=== PATIENT | male | born 1995 | race Caucasian/White ===

== ENCOUNTER 2017-02-19 21:42 | Emergency (ER) | payer OTHER ==
--- NOTE | 2017-02-19 21:53 | ER Document Report ---
ED General - General Stated Complaint: POSSIBLE OVERDOSE Time Seen by Provider: 02/19/17 21:51 Cannot obtain history due to: Altered mental status Notes: Patient is a 21-year-old male who presents by EMS after ingesting an unknown quantity of diazepam and one other additional medication. Patient does not know the name of the other medication that he took but he believes it may be his valproic acid. Patient is somewhat somnolent at time of arrival and minimally cooperative with history taking. States that he took these because his fiance left him and he did not want to "feel anything anymore". Denies any explicit suicidal ideation or intent but does note that he was okay if medications were to kill him. Notes a prior history of hospitalizations and suicide attempts. He has been diagnosed with depression, anxiety and posttraumatic stress disorder. History is otherwise limited secondary to patient's clinical status and willingness to Cooperate with history taking TRAVEL OUTSIDE OF THE [place] IN LAST 30 DAYS: No Past Medical History - General Information source: Patient, Emergency Med Personnel Cannot obtain history due to: Uncooperative, Altered mental status - Social History Smoking Status: Never Smoker Frequency of alcohol use: Occasional Drug Abuse: None Family History: Reviewed & Not Pertinent Neurological Medical History: Reports: Hx Seizures Musculoskeltal Medical History: Reports Hx Musculoskeletal Trauma Psychiatric Medical History: Reports: Hx Bipolar Disorder, Hx Post Traumatic Stress Disorder - Immunizations Hx Diphtheria, Pertussis, Tetanus Vaccination: Yes Review of Systems - Review of Systems Notes: Constitutional: Negative for fever. HENT: Negative for sore throat. Eyes: Negative for visual changes. Cardiovascular: Negative for chest pain. Respiratory: Negative for shortness of breath. Gastrointestinal: Negative for abdominal pain, vomiting or diarrhea. Genitourinary: Negative for dysuria. Musculoskeletal: Negative for back pain. Skin: Negative for rash. Neurological: Negative for headaches, weakness or numbness. 10 point ROS negative except as marked above and in HPI. Physical Exam - Vital signs Vitals: Resp BP Pulse Ox 16 118/84 100 02/19/17 21:55 02/19/17 21:55 02/19/17 21:55 Interpretation: Normal Notes: PHYSICAL EXAMINATION: GENERAL: Somewhat somnolent but does respond all questions. GCS 15. HEAD: Atraumatic, normocephalic. EYES: Pupils equal round and reactive to light, extraocular movements intact, sclera anicteric, conjunctiva are normal. ENT: nares patent, oropharynx clear without exudates. Moist mucous membranes. NECK: Normal range of motion, supple without lymphadenopathy LUNGS: Breath sounds clear to auscultation bilaterally and equal. No wheezes rales or rhonchi. HEART: Regular rate and rhythm without murmurs ABDOMEN: Soft, nontender, normoactive bowel sounds. No guarding, no rebound. No masses appreciated. EXTREMITIES: Normal range of motion, no pitting or edema. No cyanosis. NEUROLOGICAL: No focal neurological deficits. Moves all extremities spontaneously and on command. PSYCH: Somnolent, depressed mood and affect. Poor eye contact. SKIN: Warm, Dry, normal turgor, no rashes or lesions noted. Course - Re-evaluation Re-evalutation: 02/19/17 21:52 Patient presents after overdosing on unknown quantity of diazepam as well as possibly valproic acid. Patient states he did not want other additional medication but he is uncertain of which medicine this was. He is prescribed valproic acid, Klonopin, and Prozac. Patient states that he took these medicines "because it did not want to feel anything anymore". He does have a history of depression anxiety and admits to remote history of suicide attempt. At time of initial assessment patient is somewhat somnolent but awake, talking and coherent fashion. No acute medical concerns. Vitals are normal at the time of initial assessment. Will send a full panel of labs including a valproic acid level, placed on retail management keyholder, and I have filled out IVC paperwork. 02/20/17 03:14 Patient has remained hemodynamically stable. Labs are all unremarkable including a valproic acid level which is undetectable. EKG unremarkable. He has not had any airway compromise or deterioration of his mental status. He is clinically cleared for psychiatric evaluation at this time - Vital Signs Vital signs: Temp Pulse Resp BP Pulse Ox 19 101/56 L 98 02/20/17 01:31 02/20/17 01:30 02/20/17 01:31 - Laboratory Result Diagrams: 02/19/17 22:04 02/19/17 22:04 Laboratory results interpreted by me: 02/19/17 02/19/17 22:04 23:36 Potassium 3.4 L Ur Leukocyte Esterase TRACE H Salicylates < 1.0 L Acetaminophen < 10 L Valproic Acid < 10.0 L - EKG Interpretation by Me Additional EKG results interpreted by me: 02/20/17 03:13 Sinus bradycardia. Rate 48. No ST elevations or depressions. QTC is 404. Discharge - Discharge Clinical Impression: Polysubstance overdose Qualifiers: Encounter type: initial encounter Injury intent: intentional self-harm Qualified Code(s): T50.902A - Poisoning by unspecified drugs, medicaments and biological substances, intentional self-harm, initial encounter Condition: Fair Disposition: PSYCH HOSP/UNIT
[2017-02-19 22:33] LABS: ABSOLUTE EOSINOPHILS # (AUTO) 0.2 10^3/uL (0.0-0.6); ABSOLUTE LYMPHOCYTES (AUTO) 2.9 10^3/uL (0.5-4.7); ABSOLUTE MONOCYTES (AUTO) 0.6 10^3/uL (0.1-1.4); ABSOLUTE NEUT (AUTO) 4.8 10^3/uL (1.7-8.2); BASOPHILS % (AUTO) 0.4 % (0-2); EOSINOPHILS % (AUTO) 2.6 % (0-6); HEMATOCRIT 41.8 % (37.9-51.0); HEMOGLOBIN 13.6 g/dL (13.5-17.0); LYMPHOCYTES % (AUTO) 34.1 % (13-45); MEAN CORPUSCULAR HEMOGLOBIN 27.3 pg (27.0-33.4); MEAN CORPUSCULAR HGB CONC 32.7 g/dL (32.0-36.0); MEAN CORPUSCULAR VOLUME 83 fl (80-97); MONOCYTES % (AUTO) 7.4 % (3-13); RED CELL DISTRIBUTION WIDTH 13.8 % (11.5-14.0); SEGMENTED NEUTROPHILS % (AUTO) 55.5 % (42-78); WHITE BLOOD COUNT 8.6 10^3/uL (4.0-10.5)
[2017-02-19 22:56] LABS: ALANINE AMINOTRANSFERASE 26 U/L (21-72); ALBUMIN 3.7 g/dL (3.5-5.0); ALKALINE PHOSPHATASE 75 U/L (38-126); ANION GAP 12 (5-19); ASPARTATE AMINO TRANSFERASE 21 U/L (17-59); BILIRUBIN,DIRECT 0.2 mg/dL (0.0-0.4); BILIRUBIN,TOTAL 0.6 mg/dL (0.2-1.3); BLOOD UREA NITROGEN 9 mg/dL (7-20); CALCIUM 8.6 mg/dL (8.4-10.2); CARBON DIOXIDE 24 mmol/L (22-30); CHLORIDE 106 mmol/L (98-107); CREATININE RESULT 1.09 mg/dL (0.52-1.25); GLUCOSE 97 mg/dL (75-110); POTASSIUM 3.4 mmol/L (3.6-5.0); SODIUM 141.7 mmol/L (137-145); TOTAL PROTEIN 6.9 g/dL (6.3-8.2)
[2017-02-19 23:02] LABS: ALCOHOL < 10 mg/dL (NONE DETECTED); VALPROIC ACID < 10.0 ug/mL (50.0-120.0)
[2017-02-20 01:24] LABS: APPEARANCE,URINE CLEAR; BILIRUBIN,URINE NEGATIVE (NEGATIVE); GLUCOSE, URINE NEGATIVE (NEGATIVE); KETONES,URINE NEGATIVE (NEGATIVE); LEUKOCYTE ESTERASE,URINE TRACE (NEGATIVE); NITRITE,URINE NEGATIVE (NEGATIVE); PROTEIN,URINE NEGATIVE (NEGATIVE); URINE SPECIFIC GRAVITY 1.018; UROBILINOGEN,URINE NEGATIVE mg/dL (<2.0)
[2017-02-20 01:47] LABS: URINE BARBITURATES SCREEN NEGATIVE; URINE METHADONE SCREEN NEGATIVE; URINE OPIATES LOW NEGATIVE; URINE PHENCYCLIDINE SCREEN NEGATIVE
[2017-02-20] MEDS: BENZTROPINE MESYLATE 1 MG TABLET PO SCH (12:06)
[2017-02-20] MEDS: OLANZAPINE 5 MG TABLET PO SCH (17:54)
--- NOTE | 2017-02-20 17:55 | EKG REPORT ---
SEVERITY:- OTHERWISE NORMAL ECG - SINUS BRADYCARDIA BORDERLINE RIGHT AXIS DEVIATION : Confirmed by: Clinton Thakur 20-Feb-2017 17:54:37
--- NOTE | 2017-02-20 18:58 | ER Document Report ---
Doctor's Note Notes: 02/20/17 18:58 Pain and evaluated at bedside, chart was reviewed, including labs, vital signs, previous physician documentation, mental health team has evaluated patient and feel as though he should continue to remain under IVC as it is unsafe for him to go home and their weapons at home that he could use to harm himself, this plan was discussed with patient at bedside and he is in agreement, no complaints at present time
[2017-02-21] MEDS: BENZTROPINE MESYLATE 1 MG TABLET PO SCH (10:31)
[2017-02-21] MEDS: OLANZAPINE 5 MG TABLET PO SCH (10:31)
--- NOTE | 2017-02-21 10:50 | ER Document Report ---
Doctor's Note Notes: 02/21/17 10:49 Patient resting comfortably on stretcher, no complaints at present time, no events overnight, chart was reviewed including labs and vital signs, he has had periods of borderline hypotension, but he is responsive at time of my evaluation , so likely his blood pressure was low only when he was sleeping or resting, patient will remain in the emergency room until appropriate disposition can be made that ensures his safety as he has access to weapons at home at the current time
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
[2017-02-21 16:24] VITALS: BP 116/69
== END 2017-02-21 16:24 | disposition home or self-care (01) ==
LOC: ER 21:42
DX: T42.4X2A Poisoning by benzodiazepines, intentional self-harm, initial encounter (principal); T50.902A Poisoning by unspecified drugs, medicaments and biological substances, intentional self-harm, initial encounter; R40.0 Somnolence; R00.1 Bradycardia, unspecified; F31.4 Bipolar disorder, current episode depressed, severe, without psychotic features; F41.9 Anxiety disorder, unspecified; F43.10 Post-traumatic stress disorder, unspecified; Z79.899 Other long term (current) drug therapy; Z63.0 Problems in relationship with spouse or partner
CPT/HCPCS: 36415; 80053; 80164; 80307; 81001; 85025; 93005; 93010; 99285

== ENCOUNTER 2020-04-27 00:03 | Emergency (ER) | payer OTHER ==
[2020-04-27] MEDS ORDERED: NORMAL SALINE 1000 ML 1,000 ML IV ONE (00:37)
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
[2020-04-27 00:52] LABS: ABSOLUTE BASOPHILS # (AUTO) 0.1 10^3/uL (0.0-0.2); ABSOLUTE EOSINOPHILS # (AUTO) 0.2 10^3/uL (0.0-0.6); ABSOLUTE LYMPHOCYTES (AUTO) 2.1 10^3/uL (0.5-4.7); ABSOLUTE MONOCYTES (AUTO) 0.8 10^3/uL (0.1-1.4); ABSOLUTE NEUT (AUTO) 6.9 10^3/uL (1.7-8.2); BASOPHILS % (AUTO) 0.6 % (0-2); EOSINOPHILS % (AUTO) 2.3 % (0-6); HEMATOCRIT 43.2 % (37.9-51.0); HEMOGLOBIN 14.6 g/dL (13.5-17.0); LYMPHOCYTES % (AUTO) 20.9 % (13-45); MEAN CORPUSCULAR HGB CONC 33.9 g/dL (32.0-36.0); MEAN CORPUSCULAR VOLUME 83 fl (80-97); PLATELET COUNT 207 10^3/uL (150-450); RED BLOOD COUNT 5.23 10^6/uL (4.35-5.55); RED CELL DISTRIBUTION WIDTH 14.2 % (11.5-14.0); SEGMENTED NEUTROPHILS % (AUTO) 68.2 % (42-78); TOTAL CELLS COUNTED % (AUTO) 100 %; WHITE BLOOD COUNT 10.1 10^3/uL (4.0-10.5)
[2020-04-27 01:08] LABS: ACETAMINOPHEN < 10 ug/mL (10-30); ALBUMIN 4.5 g/dL (3.5-5.0); ALCOHOL 25 mg/dL (NONE DETECTED); ALKALINE PHOSPHATASE 94 U/L (38-126); ANION GAP 11 (5-19); ASPARTATE AMINO TRANSFERASE 28 U/L (17-59); BILIRUBIN,TOTAL 0.4 mg/dL (0.2-1.3); BLOOD UREA NITROGEN 12 mg/dL (7-20); CALCIUM 9.4 mg/dL (8.4-10.2); CARBON DIOXIDE 22 mmol/L (22-30); CHLORIDE 106 mmol/L (98-107); GLUCOSE 99 mg/dL (75-110); POTASSIUM 3.5 mmol/L (3.6-5.0); SALICYLATE < 1.0 mg/dL (2.0-20.0); TOTAL PROTEIN 7.6 g/dL (6.3-8.2)
[2020-04-27 01:46] LABS: AMORPHOUS SEDIMENT,URINE TRACE /HPF; APPEARANCE,URINE SLIGHTLY-CLOUDY; BILIRUBIN,URINE NEGATIVE (NEGATIVE); COLOR,URINE YELLOW; GLUCOSE, URINE NEGATIVE (NEGATIVE); KETONES,URINE NEGATIVE (NEGATIVE); LEUKOCYTE ESTERASE,URINE NEGATIVE (NEGATIVE); NITRITE,URINE NEGATIVE (NEGATIVE); PROTEIN,URINE 30 mg/dL (NEGATIVE); URINE SPECIFIC GRAVITY 1.028
[2020-04-27 02:08] LABS: URINE AMPHETAMINES SCREEN NEGATIVE; URINE BARBITURATES SCREEN NEGATIVE; URINE BENZODIAZEPINES SCREEN NEGATIVE; URINE COCAINE SCREEN NEGATIVE; URINE MARIJUANA (THC) SCREEN NEGATIVE; URINE METHADONE SCREEN NEGATIVE; URINE PHENCYCLIDINE SCREEN NEGATIVE
--- NOTE | 2020-04-27 02:19 | RADIOLOGY REPORT (SQ) ---
EXAM DESCRIPTION: CT HEAD WITHOUT IV CONTRAST COMPLETED DATE/TME: 04/27/2020 00:36 CLINICAL HISTORY: ETOH, head injury COMPARISON: 07/20/2016 TECHNIQUE: Axial CT of the head obtained from the skull apex to the skull base without contrast. FINDINGS: No acute intracranial hemorrhage identified. No mass, mass effect, shift of the midline, abnormal extra-axial fluid collection or CT evidence of acute ischemic change identified. The ventricular system is unremarkable. No acute abnormalities of the supratentorial white matter, basal ganglia, cerebellum, or brainstem. Contusion in the right facial subcutaneous soft tissues. The visualized paranasal sinuses and the mastoids are relatively well aerated. No skull fracture identified. Visualized orbits and globes are unremarkable. IMPRESSION: 1. No acute intracranial abnormality identified. This exam was performed according to our departmental dose-optimization program, which includes automated exposure control, adjustment of the mA and/or kV according to patient size and/or use of iterative reconstruction technique.
--- NOTE | 2020-04-27 02:29 | RADIOLOGY REPORT (SQ) ---
EXAM DESCRIPTION: CT CERVICAL SPINE WITHOUT IV CONTRAST COMPLETED DATE/TME: 04/27/2020 00:36 CLINICAL HISTORY: ETOH, head injury COMPARISON: None available TECHNIQUE: Axial CT of the cervical spine obtained without contrast. FINDINGS: Straightening of the cervical lordosis may be secondary to patient positioning. The atlantoaxial, atlantodental, and occipitoatlantal intervals are preserved. No fracture identified. Vertebral body height preserved. Prevertebral soft tissues are unremarkable. Intervertebral disc height preserved. Visualized skull base is intact. No fracture of the visualized facial bones. Visualized mastoid air cells and paranasal sinuses are well aerated. Visualized thyroid is unremarkable. No cervical lymphadenopathy. No pneumothorax in the visualized lung apices. IMPRESSION: 1. No acute fracture or subluxation of the cervical spine. This exam was performed according to our departmental dose-optimization program, which includes automated exposure control, adjustment of the mA and/or kV according to patient size and/or use of iterative reconstruction technique.
[2020-04-27] MEDS ORDERED: KETOROLAC TROMETHAMINE INJ/PF 30 MG/1 ML SDV IV ONE (06:03)
--- NOTE | 2020-04-27 10:11 | EKG REPORT ---
SEVERITY:- BORDERLINE ECG - SINUS RHYTHM BORDERLINE RIGHT AXIS DEVIATION INFERIOR Q WAVES, PROBABLY NORMAL VARIATION : Confirmed by: Clinton Thakur 27-Apr-2020 10:09:59
--- NOTE | 2020-04-27 12:05 | ER Document Report ---
Doctor's Note Notes: 04/27/20 11:04 PHYSICAL EXAMINATION: GENERAL: Well-appearing and in no acute distress. HEAD: Atraumatic, normocephalic. EYES: sclera anicteric, conjunctiva are normal. ENT: nares patent. Moist mucous membranes. NECK: Normal range of motion, supple without lymphadenopathy LUNGS: CTAB and equal. No wheezes rales or rhonchi. HEART: Regular rate and rhythm without murmurs ABDOMEN: Soft, nontender, normal bowel sounds, no guarding. EXTREMITIES: Normal range of motion, no pitting edema. BACK: No CVA tenderness NEUROLOGICAL: Cranial nerves grossly intact. Normal speech. PSYCH: Normal mood, normal affect. SKIN: Warm, Dry, normal turgor, no rashes or lesions noted Patient resting without complaint at this time. Behavioral health team is [facility] to [facility] at this time. Patient otherwise medically clear at this time. 04/27/20 19:45 Patient complains of right ear discomfort, patient with a bulging purulent effusion to the right ear.
[2020-04-27] MEDS: DIVALPROEX SODIUM 250 MG TAB.SR.24H PO SCH (16:56)
[2020-04-27] MEDS: BENZTROPINE MESYLATE 1 MG TABLET PO SCH (16:56)
[2020-04-27] MEDS: LURASIDONE HCL 40 MG TABLET PO SCH (16:56)
[2020-04-27] MEDS: OLANZAPINE 5 MG TABLET PO SCH (18:59)
[2020-04-27] MEDS ORDERED: IBUPROFEN 600 MG TABLET PO PRN (19:44)
[2020-04-27] MEDS: AMOXICILLIN TRIHYDRATE 500 MG CAPSULE PO SCH (22:04)
[2020-04-28] MEDS: DIVALPROEX SODIUM 250 MG TAB.SR.24H PO SCH (10:10)
[2020-04-28] MEDS: LURASIDONE HCL 40 MG TABLET PO SCH (10:10)
[2020-04-28] MEDS: OLANZAPINE 5 MG TABLET PO SCH (10:10)
[2020-04-28] MEDS: AMOXICILLIN TRIHYDRATE 500 MG CAPSULE PO SCH (10:10)
[2020-04-28] MEDS: BENZTROPINE MESYLATE 1 MG TABLET PO SCH (10:11)
--- NOTE | 2020-04-28 11:04 | ER Document Report ---
Doctor's Note Notes: 04/28/20 10:45 PHYSICAL EXAMINATION: GENERAL: Well-appearing and in no acute distress. HEAD: Atraumatic, normocephalic. EYES: sclera anicteric, conjunctiva are normal. ENT: Right purulent effusion, scar tissue to bilateral TMs nares patent. Moist mucous membranes. NECK: Normal range of motion, supple without lymphadenopathy LUNGS: CTAB and equal. No wheezes rales or rhonchi. HEART: Regular rate and rhythm without murmurs EXTREMITIES: Normal range of motion, no pitting edema. No cyanosis. BACK: No CVA tenderness NEUROLOGICAL: Cranial nerves grossly intact. Normal speech. PSYCH: Normal mood, normal affect. SKIN: Warm, Dry, normal turgor, no rashes or lesions noted Patient resting quietly on stretcher with visitor at bedside. Patient medically clear for transfer discharge pending behavioral health team disposition. 04/28/20 14:08 Patient has been cleared for discharge at this time, behavioral health team advises giving patient prescription of his medications for the next 2 weeks as he is attempting to get back home to [place].
--- NOTE | 2020-04-28 12:42 | PSYCHOLOGICAL NOTE ---
Psych Note - Psych Note Date seen by psych provider: 04/27/20 Time seen by psych provider: 11:35 Psych Note: Reason for Consult: Suicidal ideation Medication recommendations per [facility]'s contracted psychiatrist Dr Jovon HUBBARD are as follows: Decrease home medication of Latuda 40mg for 5 days then decrease to 20mg for 5 days then discontinue Please add Depakote 250mg daily for 5 days then increase to 250mg twice daily for 5 days then increase to 500mg twice daily Please add Zyprexa 5mg twice daily Please add cogentin 1mg daily
--- NOTE | 2020-04-28 12:44 | PSYCHOLOGICAL NOTE ---
Psych Note - Psych Note Date seen by psych provider: 04/28/20 Time seen by psych provider: 10:45 Psych Note: Medication recommendations per [facility]'s contracted psychiatrist Dr Jovon HUBBARD are as follows: Decrease home medication of Latuda 40mg for 5 days then decrease to 20mg for 5 days then discontinue Please add Depakote 250mg daily for 5 days then increase to 250mg twice daily for 5 days then increase to 500mg twice daily Please add Zyprexa 5mg twice daily Please add cogentin 1mg daily Impression/Plan: Patient is recommended for rescind of 24 hour petition for evaluation and is cleared from acute psychiatric services; paperwork is signed an placed in patient's chart. Dr. Pino was consulted on the care and management of this patient; attending physician is in agreement with recommendations and disposition.
[2020-04-28 14:30] VITALS: BP 108/50
== END 2020-04-28 14:40 | disposition home or self-care (01) ==
LOC: ER 00:03
DX: R45.851 Suicidal ideations (principal); F31.9 Bipolar disorder, unspecified; S09.90XA Unspecified injury of head, initial encounter; R51 Headache; W19.XXXA Unspecified fall, initial encounter; Y93.89 Activity, other specified; Y92.009 Unspecified place in unspecified non-institutional (private) residence as the place of occurrence of the external cause; Z79.899 Other long term (current) drug therapy; Z79.891 Long term (current) use of opiate analgesic; Z91.5 Personal history of self-harm
CPT/HCPCS: 93005; 99285; 96361; 96374; 36415; 80307 ×4; 85025; 80053; 81001; 70450; 72125; 93010; J1885; J3490 ×4; J7030